=== PATIENT | male | born 1940 | race Caucasian/White ===

== ENCOUNTER 2020-11-06 10:08 | Emergency (ER) | payer MEDICARE, OTHER ==
[2020-11-06] MEDS ORDERED: Acetaminophen/HYDROcodone 325-10 MG Tab PO ONE (11:12)
[2020-11-06] MEDS ORDERED: Lidocaine 2% Jelly 10 ML Urojet MUCMEM ONE (11:25)
--- NOTE | 2020-11-06 11:25 | EDM.PDOC ---
ED HPI GENERAL MEDICAL PROBLEM - General Chief Complaint: Genitourinary Problem Stated Complaint: CATHETER PLACED YESTERDAY, BLOOD CLOTS IN BAG Time Seen by Provider: 11/06/20 10:45 Source of Information: Reports: Patient, Family History Limitations: Reports: No Limitations - History of Present Illness INITIAL COMMENTS - FREE TEXT/NARRATIVE: 80-year-old male who had an indwelling Tripp catheter replaced at the clinic yesterday. He does admit that they had some problems placing the Tripp. This morning a little some blood clots in the bag which scared him, he also is having some persistent discomfort with the catheter. No fevers or chills. Onset: Unknown/Unsure (Nose blood clots in the bag this morning when he got up, the flow still seems to be good) Penis Pain Score (Numeric/FACES): 8 - Related Data Allergies Allergy/AdvReac Type Severity Reaction Status Date / Time No Known Allergies Allergy Verified 11/06/20 10:40 Home Meds: Home Meds Acetaminophen/HYDROcodone [[place] 325-7.5 MG] 1 tab PO TID PRN 11/06/20 [History] Albuterol Sulfate [Albuterol Sulfate Hfa] 2 puff INH Q4H PRN 11/06/20 [History] Aspirin [Halfprin] 81 mg PO DAILY 11/06/20 [History] Cetirizine [ZyrTEC] 1 tab PO DAILY 11/06/20 [History] Cyclobenzaprine [Flexeril] 1 tab PO TID 11/06/20 [History] Finasteride [Proscar] 5 mg PO DAILY 11/06/20 [History] Gabapentin [Neurontin] 300 mg PO TID 11/06/20 [History] Ketoconazole [Nizoral 2% Shampoo] 1 dose TOP Q72H 11/06/20 [History] Levothyroxine 75 mcg PO DAILY 11/06/20 [History] Lutein/Minerals/Vit A,C & E [Ocuvite] 1 tab PO DAILY 11/06/20 [History] Montelukast [Singulair] 10 mg PO BEDTIME 11/06/20 [History] Mv-Mn/FA/Vit K/Lycop/Lut/Coq10 [Daily Multivitamin Capsule] 1 cap PO DAILY 11/06/20 [History] Rivaroxaban [Xarelto] 20 mg PO DAILY 11/06/20 [History] Sennosides/Docusate Sodium [Senna-Docusate Sodium Tablet] 2 - 4 tab PO DAILY PRN 11/06/20 [History] Tamsulosin HCl [Flomax] 2 cap PO DAILY 11/06/20 [History] Triamcinolone Acetonide [Kenalog 0.1% Crm] 1 applic TOP BID 11/06/20 [History] Valsartan/Hydrochlorothiazide [Diovan Hct 160-12.5 mg Tab] 1 tab PO DAILY 11/06/20 [History] atorvaSTATin [Lipitor] 5 mg PO BEDTIME 11/06/20 [History] traZODone 1 tab PO BEDTIME 11/06/20 [History] Social & Family History - Tobacco Use Tobacco Use Status *Q: Never Tobacco User - Caffeine Use Caffeine Use: Reports: None - Recreational Drug Use Recreational Drug Use: No ED ROS GENERAL - Review of Systems Review Of Systems: See Below Constitutional: Denies: Fever, Chills Respiratory: Denies: Shortness of Breath Cardiovascular: Denies: Chest Pain GI/Abdominal: Reports: Abdominal Pain (Lower abdominal pain especially with movement) : Reports: Frequency, Urgency, Other (Hematuria, pain from the Tripp) Neurological: Reports: No Symptoms ED EXAM, RENAL/ - Physical Exam Exam: See Below Exam Limited By: No Limitations General Appearance: Alert, No Apparent Distress, Other (Looks uncomfortable but not distressed) Respiratory/Chest: No Respiratory Distress, Lungs Clear Extremities: Pedal Edema (Trace symmetric edema) Neurological: Alert, Oriented Psychiatric: Anxious Skin Exam: Warm, Dry Course - Vital Signs Last Recorded V/S: Last Vital Signs Temp 97.3 F 11/06/20 10:37 Pulse 66 11/06/20 10:37 Resp 16 11/06/20 10:37 BP 131/37 L 11/06/20 10:37 Pulse Ox 97 11/06/20 10:37 - Orders/Labs/Meds Meds: Medications Discontinued Medications Generic Name Dose Route Start Last Admin Trade Name Freq PRN Reason Stop Dose Admin Hydrocodone Bitart/Acetaminophen 1 tab 11/06/20 11:12 11/06/20 11:29 Acetaminophen/Hydrocodone 325-10 Mg Tab PO 11/06/20 11:13 1 tab ONETIME ONE Administration Lidocaine HCl 10 ml 11/06/20 11:25 11/06/20 11:29 Lidocaine 2% Jelly 10 Ml Urojet MUCMEM 11/06/20 11:26 10 ml ONETIME ONE Administration - Re-Assessments/Exams Free Text/Narrative Re-Assessment/Exam: 11/06/20 15:06 Leg bag shows a significant collection of clear urine which is reddened. He is still having some discomfort and irritation from the Tripp tube. We tried to irrigate the tube, it caused increased pain and irritation. We are not able to extract the saline which was irrigated. At that point the Tripp bulb was deflated, the Tripp advanced another several inches and reinflated and the pat ient's pain resolved. The urine also cleared. It became evident that the Tripp bulb was probably misplaced and partially pulling or stretching the urethra. Departure - Departure Time of Disposition: 12:24 Disposition: Home, Self-Care 01 Clinical Impression: Malfunction of Tripp catheter Qualifiers: Encounter type: initial encounter Qualified Code(s): T83.011A - Breakdown (mechanical) of indwelling urethral catheter, initial encounter Hematuria Qualifiers: Hematuria type: gross Qualified Code(s): R31.0 - Gross hematuria - Discharge Information Instructions: Indwelling Urinary Catheter Care, Adult Referrals: PCP,None [Primary Care Provider] - Forms: ED Department Discharge Care Plan Goals: Continue routine care with your Tripp catheter and follow-up with urology as scheduled. Return if you redevelop any issues or problems. Sepsis Event Note (ED) - Evaluation Sepsis Screening Result: No Definite Risk - Focused Exam Vital Signs: Vital Signs Temp Pulse Resp BP Pulse Ox 11/06/20 10:37 97.3 F 66 16 131/37 L 97 11/06/20 10:33 97.3 F 66 16 131/37 L 97
== END 2020-11-06 12:24 | disposition home or self-care (01) ==
LOC: JP.ED 10:08
DX: T83.011A Breakdown (mechanical) of indwelling urethral catheter, initial encounter (principal); R31.0 Gross hematuria; Z79.2 Long term (current) use of antibiotics; Z79.899 Other long term (current) drug therapy; Z79.01 Long term (current) use of anticoagulants
CPT/HCPCS: 99283; A9270

== ENCOUNTER 2020-11-23 13:36 | Emergency (ER) | payer MEDICARE | END 2020-11-23 14:59 | disposition left against medical advice (07) | LOC: JP.ED 13:36 | DX: T83.038A Leakage of other urinary catheter, initial encounter (principal); Z53.21 Procedure and treatment not carried out due to patient leaving prior to being seen by health care provider ==

== ENCOUNTER 2022-05-11 09:46 | Emergency (ER) | payer MEDICARE ==
[2022-05-11] MEDS ORDERED: HYDROmorphone 1 MG/ML Syringe IM ONE (10:25)
[2022-05-11] MEDS ORDERED: Ketorolac 30 MG/ML SDV IM ONE (11:14)
== END 2022-05-11 11:54 | disposition home or self-care (01) ==
LOC: JP.ED 09:46
DX: M54.50 Low back pain, unspecified (principal); Z79.899 Other long term (current) drug therapy
CPT/HCPCS: 96372; 99283; J1170; J1885